=== PATIENT | male | born 1960 | race Caucasian/White ===

== ENCOUNTER 2018-06-02 09:36 | Day surgery (SDC) | payer OTHER ==
[2018-06-02] MEDS ORDERED: GLUCAGON 1 MG/VIAL IV ONE (09:37)
[2018-06-02] MEDS ORDERED: PROPOFOL 10 MG/ML VIAL IV ONE (09:37)
[2018-06-02] MEDS ORDERED: LIDOCAINE 2% MDV (20MG/ML) 20ML VIAL IV ONE (09:37)
--- NOTE | 2018-06-02 13:30 | Operative Note ---
DATE OF SURGERY: 06/02/2018 OPERATION: COLONOSCOPY to the cecum with cold biopsy forceps polypectomy x2. INDICATION: History of adenomatous polyps. The patient returns at this time for surveillance. His last preparation was fair to good, and for this reason, he came back in 3 years' time for surveillance exam. ANESTHESIA: Intravenous sedation was administered by the department of anesthesiology and included Diprivan titrated to effect. PROCEDURE: Following informed consent from this alert individual including a discussion of the risks and benefits of the procedure and an opportunity for the patient to ask questions, the patient was in the left lateral decubitus position. A digital rectal examination was performed. No abnormalities were noted. Following this, the Olympus [id number] video colonoscope was inserted into the rectum without resistance. The rectal mucosa had a normal appearance with normal folds and distensibility. The colonoscope was advanced up through the remainder of the colon without too much difficulty although there was some focal spasm noted in the left colon. For this reason, 0.5 mg of glucagon was administered with good results. The cecum was defined by noting the appendiceal orifice and ileocecal valve. At the base of the cecum, there was a diminutive 3 mm polyp which was removed with cold biopsy forceps. From this point, the colonoscope was then withdrawn. The colon preparation overall was good. No other changes were noted until the rectum was reached. At the most distal rectum just above the pectinate line, there was a diminutive 3 mm polyp which was also removed with cold biopsy forceps. Retroflexion in the rectum was otherwise unremarkable. The instrument was straightened and withdrawn. The patient tolerated the procedure well and was returned to the recovery area in stable condition. IMPRESSION: 1. Diminutive 3 mm cecal polyp removed with biopsy forceps. 2. Diminutive 3 mm distal rectal polyp just above the pectinate line removed with cold biopsy forceps. RECOMMENDATIONS: Further recommendations will be forthcoming pending results of pathology obtained today. Most likely a recheck will be in 5 years' time. Followup will be with Julio Cesar Vargas DO, as well. As always, thank you for allowing me to participate in the care of your patient. CC: DO MAGALY Steve
== END 2018-06-02 11:50 | disposition home or self-care (01) ==
LOC: HOP 09:36
PROVIDERS: ATTEND Internal Medicine Gastroenterology
DX: Z12.11 Encounter for screening for malignant neoplasm of colon (principal); Z86.010 Personal history of colon polyps; D12.0 Benign neoplasm of cecum; D12.8 Benign neoplasm of rectum; E78.00 Pure hypercholesterolemia, unspecified
CPT/HCPCS: J1610